=== PATIENT | male | born 1940 | race Caucasian/White ===

== ENCOUNTER 2017-07-02 09:56 | Emergency (ER) | payer MEDICARE, OTHER ==
[2017-07-02 12:52] VITALS: BP 122/82
--- NOTE | 2017-07-02 14:32 | ED ---
Back Pain - HPI Summary HPI Summary: Patient is an otherwise healthy 77-year-old male presenting to the ED with chief complaint of low back pain. He has had symptoms for several months, but this has been worsening in the past week. Back pain is to the bilateral lower back and radiates down both posterior legs. Denies bladder or bowel dysfunction. Denies any weakness or foot drop in either lower extremity. He states he had surgery on his neck at the [facility] on 1120 and had 10 pins placed. Second neck surgery done on 214 and had 14 pins placed. He is wearing a cervical collar on arrival. He states on April 23 he was attempting to get out of bed and developed severe low back pain. This has remained intermittent, but when it presents, he states the pain is 10 out of 10. Symptoms are relieved with ice and sitting" chair, aggravated by ambulation. He will followed up at the [facility] and was told he had compression fractures in his spine. He was taking oxycodone and Valium and ran out 2 weeks ago. He states he is visiting at this time, but plans to stay in the area for a while and does not have a local PCP or neurosurgeon. He has not tried ibuprofen as he was told not to take this following his surgery. However, his surgery was 2 months ago. - History of Current Complaint Chief Complaint: EDBackInjuryPain Stated Complaint: BACK PAIN Time Seen by Provider: 07/02/17 11:32 Hx Obtained From: Patient Onset/Duration: Sudden Onset Onset/Duration: Started Hours Ago Timing: Constant Back Pain Location: Is Discrete @ - Bilateral low back pain which radiates down into the legs without bladder or bowel dysfunction Severity Initially: Moderate Severity Currently: Moderate Pain Intensity: 4 Pain Scale Used: 0-10 Numeric Aggravating Symptom(s): Lifting, Bending, Walking Alleviating Symptom(s): Rest, Position Associated Signs And Symptoms: Positive: Negative. Negative: Swelling, Redness , Bruising, Weakness, Numbness, Tingling, Abdominal Pain, Bladder Incontinence, Bowel Incontinence, Weight Loss, Pain with Weight Bearing - Risk Factors AAA Risk Factors: Negative TAD Risk Factors: Negative Epidural Abscess Risk Factors: Negative PMH/Surg Hx/FS Hx/Imm Hx Previously Healthy: Yes Infectious Disease History: No Infectious Disease History: Denies: Traveled Outside the [place] in Last 30 Days - Social History Occupation: Unemployed Lives: With Family Alcohol Use: Occasionally Hx Substance Use: Yes Substance Use Type: Reports: Prescribed Hx Tobacco Use: Yes Smoking Status (MU): Former Smoker Review of Systems Constitutional: Negative Negative: Fever, Chills, Fatigue, Skin Diaphoresis Eyes: Negative Cardiovascular: Negative Respiratory: Negative Genitourinary: Negative Positive: no symptoms reported, see HPI Positive: Arthralgia Neurological: Negative All Other Systems Reviewed And Are Negative: Yes Physical Exam Triage Information Reviewed: Yes Vital Signs On Initial Exam: Initial Vitals Temp Pulse Resp BP Pulse Ox 97.8 F 95 18 125/91 100 07/02/17 10:03 07/02/17 10:03 07/02/17 10:03 07/02/17 10:03 07/02/17 10:03 Vital Signs Reviewed: Yes Appearance: Positive: Well-Appearing, Well-Nourished Skin: Positive: Warm, Skin Color Reflects Adequate Perfusion Head/Face: Positive: Normal Head/Face Inspection Eyes: Positive: EOMI, ADRIEN, Conjunctiva Clear Neck: Positive: Supple, No Lymphadenopathy Respiratory/Lung Sounds: Positive: Clear to Auscultation, Breath Sounds Present Cardiovascular: Positive: RRR, Pulses are Symmetrical in both Upper and Lower Extremities Musculoskeletal: Positive: Pain @ - Bilateral lower back Neurological: Positive: Sensory/Motor Intact, Alert, Oriented to Person Place, Time, Speech Normal Psychiatric: Positive: Normal, Affect/Mood Appropriate AVPU Assessment: Alert Diagnostics - Vital Signs Vital Signs Temp Pulse Resp BP Pulse Ox 07/02/17 12:49 97.6 F 90 18 122/82 97 07/02/17 10:03 97.8 F 95 18 125/91 100 - Laboratory Lab Statement: Any lab studies that have been ordered have been reviewed, and results considered in the medical decision making process. Back Pain Course/Dx - Course Course Of Treatment: Discussed at length treatment options available to the patient. I have advised he seek treatment with one of our local neurosurgeons. I have also advised he take gabapentin. He denies any bladder or bowel dysfunction. He states tramadol has helped him in the past, and he does not want opioids. I have also given him Flexeril for any spasms associated with the low back pain. He is given low back exercises. I have encouraged him to continue his TENS unit and also given him a referral to PT. He has a hard he had CT scan of the spine which show compression fractures which are stable, so I have opted out of scanning him again on this date. We'll treat with medications on this visit and encourage him to try PT and consults given to him. - Diagnoses Provider Diagnoses: Low back pain Discharge - Discharge Plan Condition: Stable Disposition: HOME Prescriptions: Diazepam TAB(*) [Valium TAB(*)] 10 mg PO Q8H PRN #15 tab MDD 3 PRN Reason: Spasms Gabapentin CAP(*) [Neurontin 300 CAP(*)] 300 mg PO BID #30 cap traMADol TAB* [Ultram*] 50 mg PO Q8H PRN #15 tab MDD 3 PRN Reason: Pain Patient Education Materials: Sciatica (ED), Lumbar Radiculopathy (ED), Lower Back Exercises (ED) [place] [facility] [place],PT [Medical Doctor] - No Primary Care Phys,NOPCP [Primary Care Provider] - Rossi Jacobsen MD [Medical Doctor] - Additional Instructions: Aleve twice daily Valium up to 3 times daily only as needed for any muscle spasms Gabapentin 300 mg twice daily Tramadol 53 times daily only as needed for pain not well controlled with Aleve Please call to make an appointment with neurosurgery Have also given you a referral for physical therapy Heat to the area as much as possible
== END 2017-07-02 12:49 | disposition home or self-care (01) ==
LOC: ED 09:56
DX: M54.5 Low back pain (principal); Z87.891 Personal history of nicotine dependence
CPT/HCPCS: 99282

== ENCOUNTER 2017-12-30 11:10 | Emergency (ER) | payer MEDICARE, OTHER ==
--- NOTE | 2017-12-30 13:11 | ED ---
Respiratory - HPI Summary HPI Summary: This patient is a 77 year old M presenting to [facility] with a chief complaint of cough and chest congestion for the last 3 weeks. The patient rates the pain 0/ 10 in severity. Symptoms alleviated by at home nebulizer. Patient denies hx of under lying lung issues. Pt seen at [facility] urgent care 4 days and has been on prednisone and doxycycline for 3 days without improvement. Pt was seen at [facility] several months ago and dx with early emphysema. There he was told by he had a chronic cough due to post nasal drip after a full lung work up. - History of Current Complaint Chief Complaint: EDUpperRespComplaint Stated Complaint: COUGH Time Seen by Provider: 12/30/17 12:58 Hx Obtained From: Patient Onset/Duration: Lasting Days, Still Present Timing: Constant Initial Severity: Mild Current Severity: Moderate Pain Intensity: 0 Character: Cough (Nonproductive) Sputum Amount: Small Associated Signs and Symptoms: Negative - fever - Allergy/Home Medications Allergies/Adverse Reactions: Allergies Allergy/AdvReac Type Severity Reaction Status Date / Time No Known Allergies Allergy Verified 12/30/17 11:28 Home Medications: Home Medications Doxycycline (NF) 20 mg PO DAILY 12/30/17 [History Confirmed 12/30/17] Tamsulosin CAP* [Flomax CAP*] 1 cap PO DAILY 12/30/17 [History Confirmed ] predniSONE [Prednisone 20 MG TAB] 1 tab PO DAILY 12/30/17 [History Confirmed 01/08] PMH/Surg Hx/FS Hx/Imm Hx Cardiovascular History: Denies: Hx Congenital Heart Disease Respiratory History: Reports: Other Respiratory Problems/Disorders - early emphysema Denies: Hx Bronchopulmonary Dysplasia, Hx Chronic Bronchitis, Hx Chronic Obstructive Pulmonary Disease (COPD), Hx Cystic Fibrosis, Hx Lung Cancer, Hx Pleural Effusion, Hx Pulmonary Edema History: Denies: Hx Acute Renal Failure Infectious Disease History: No Infectious Disease History: Denies: Traveled Outside the [place] in Last 30 Days - Family History Known Family History: Negative: Renal Disease, Respiratory Disease, Seizure Disorder, Blood Disorder - Social History Lives: With Family Alcohol Use: Occasionally Hx Substance Use: Yes Substance Use Type: Reports: Prescribed Hx Tobacco Use: Yes Smoking Status (MU): Former Smoker Review of Systems Negative: Fever Positive: Cough, Other - congestion All Other Systems Reviewed And Are Negative: Yes Physical Exam - Summary Physical Exam Summary: Appearance: The patient is well-nourished in no acute distress and in no acute pain. Skin: The skin is warm and dry and skin color reflects adequate perfusion. HEENT: The head is normocephalic and atraumatic. The pupils are equal and reactive. The conjunctivae are clear and without drainage. Nares are patent and without drainage. Mouth reveals moist mucous membranes and the throat is without erythema and exudate. The external ears are intact. The ear canals are patent and without drainage. The tympanic membranes are intact. Neck: The neck is supple with full range of motion and non-tender. There are no carotid bruits. There is no neck vein distension. Respiratory: Chest is non-tender. Lungs are clear to auscultation and breath sounds are symmetrical and equal. Wet paroxysmal cough Cardiovascular: Heart is regular rate and rhythm. There is no murmur or rub auscultated. There is no peripheral edema and pulses are symmetrical and equal. Abdomen: The abdomen is soft and non-tender. There are normal bowel sounds heard in all four quadrants and there is no organomegaly palpated. Musculoskeletal: There is no back tenderness noted. Extremities are non-tender with full range of motion. There is good capillary refill. There is no peripheral edema or calf tenderness elicited. Neurological: Patient is alert and oriented to person, place and time. The patient has symmetrical motor strength in all four extremities. Cranial nerves are grossly intact. Deep tendon reflexes are symmetrical and equal in all four extremities. Psychiatric: The patient has an appropriate affect and does not exhibit any anxiety or depression. Triage Information Reviewed: Yes Vital Signs On Initial Exam: Initial Vitals Temp Pulse Resp BP Pulse Ox 98.6 F 90 16 127/82 100 12/30/17 11:15 12/30/17 11:15 12/30/17 11:15 12/30/17 11:15 12/30/17 11:15 Vital Signs Reviewed: Yes Diagnostics - Vital Signs Vital Signs Temp Pulse Resp BP Pulse Ox 12/30/17 11:15 98.6 F 90 16 127/82 100 - Laboratory Result Diagrams: 12/30/17 13:42 12/30/17 13:42 Lab Statement: Any lab studies that have been ordered have been reviewed, and results considered in the medical decision making process. - Radiology CXR Radiology Interpretation Completed By: Radiologist - Hyperinflated lung mae with no evidence of active cardiopulmonary disease. ED physician has reviewed the report. - EKG 1339 Cardiac Rate: NL EKG Rhythm: Sinus Rhythm - at [address] Segment: Normal Ectopy: None EKG Interpretation: No STEMI Disposition - Course Course Of Treatment: Mr. Montes presented complaining of paroxysmal coughing spells. He has underlying history of COPD and was recently diagnosed with bronchitis at [facility]. He is on prednisone and antibiotics. He did have a paroxysmal wet cough here but otherwise clear lungs with only upper airway sounds. His workup was unremarkable and he got significant relief with guaifenesin AC. I will treat him symptomatically and have him continue his current treatment. - Diagnoses Provider Diagnoses: Bronchitis Discharge - Sign-Out/Discharge Documenting (check all that apply): Patient Departure - Discharge Plan Condition: Stable Disposition: HOME Prescriptions: guaiFENesin/CODIEN 100MG-10MG* [Robitussin AC 100Mg-10Mg*] 5 ml PO Q4H PRN #250 udc MDD 30 PRN Reason: Cough Patient Education Materials: Acute Bronchitis (ED) Referrals: [facility] [place] [facility] [Outside] - 2 Days Additional Instructions: RETURN TO THE EMERGENCY DEPARTMENT FOR CHANGING OR WORSENING SYMPTOMS - Billing Disposition and Condition Condition: STABLE Disposition: Home - Attestation Statements Document Initiated by Scribe: Yes Documenting Scribe: Jakob Geller Provider For Whom Viviane is Documenting (Include Credential): Cj Franklin MD Scribe Attestation: Jakob Cochran, scribed for Cj Franklin MD on 12/30/17 at 1829. Scribe Documentation Reviewed: Yes Provider Attestation: The documentation as recorded by the Jakob cerna accurately reflects the service I personally performed and the decisions made by me, Cj Franklin MD
[2017-12-30] MEDS ORDERED: guaiFENesin/CODIEN 100MG-10MG* 5 ML UDC PO ONE (13:22)
[2017-12-30 13:52] LABS: ABS Basophils 0 10^3/ul (0-0.2); ABS Eosinophils 0 10^3/ul (0-0.6); ABS Monocytes 0.5 10^3/ul (0-0.8); ABS Nucleated RBC 0 10^3/ul; Eosinophil % 0.1 % (0-6); Hematocrit 44 % (42-52); Hemoglobin 15.1 g/dl (14.0-18.0); Lymphocyte % 8.9 % (25-47); Mean Corpuscular HGB Conc 35 g/dl (31-36); Mean Corpuscular Hemoglobin 36 pg (27-31); Mean Corpuscular Volume 102 fL (80-94); Mean Platelet Volume 8.2 um3 (7.4-10.4); Nucleated Red Blood Cells % 0; Platelet Count 159 10^3/ul (150-450); Red Blood Count 4.25 10^6/ul (4.00-5.40); Red Cell Distribution Width 14 % (10.5-15); White Blood Count 11.6 10^3/ul (3.5-10.8)
--- NOTE | 2017-12-30 14:04 | RAD ---
Indication: Shortness of breath. 2 views of the chest including dual energy PA views demonstrate no mediastinal shift. Lung mae appear hyperinflated. No pleural fluid, pneumonia or pneumothorax is noted. IMPRESSION: Hyperinflated lung mae with no evidence of active cardiopulmonary disease.
[2017-12-30 14:09] LABS: EGFR Non-African American 84.4 (>60)
[2017-12-30 16:37] VITALS: BP 129/80
== END 2017-12-30 16:37 | disposition home or self-care (01) ==
LOC: ED 11:10
DX: J40 Bronchitis, not specified as acute or chronic (principal); Z87.891 Personal history of nicotine dependence
CPT/HCPCS: 36415; 71046; 80053; 83605; 83880; 84484; 85025; 86140; 93005; 99282; A9270-GY

== ENCOUNTER 2018-01-03 10:00 | Emergency (ER) | payer MEDICARE, OTHER ==
[2018-01-03] MEDS ORDERED: Albuterol/Ipratropium NEB.SOL* Albuterol 2.5 MG/Ipratropium 0.5 MG 3 ML INH ONE (10:30)
[2018-01-03] MEDS ORDERED: predniSONE TAB* 20 MG PO ONE (10:33)
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
[2018-01-03 10:54] LABS: ABS Basophils 0 10^3/ul (0-0.2); ABS Eosinophils 0.1 10^3/ul (0-0.6); ABS Lymphocytes 2.6 10^3/ul (1.0-4.8); ABS Monocytes 0.7 10^3/ul (0-0.8); ABS Neutrophils 5.1 10^3/ul (1.5-7.7); ABS Nucleated RBC 0 10^3/ul; Eosinophil % 1.4 % (0-6); Hematocrit 46 % (42-52); Hemoglobin 15.8 g/dl (14.0-18.0); Lymphocyte % 30.4 % (25-47); Mean Corpuscular HGB Conc 35 g/dl (31-36); Mean Corpuscular Hemoglobin 35 pg (27-31); Mean Corpuscular Volume 101 fL (80-94); Nucleated Red Blood Cells % 0.1; Platelet Count 158 10^3/ul (150-450); Red Blood Count 4.51 10^6/ul (4.00-5.40); Red Cell Distribution Width 14 % (10.5-15); White Blood Count 8.6 10^3/ul (3.5-10.8)
[2018-01-03] MEDS ORDERED: Benzonatate CAP* 100 MG PO ONE (10:54)
--- NOTE | 2018-01-03 11:11 | RAD ---
INDICATION: Shortness of breath. COMPARISON: Comparison is made with a prior chest x-ray study from March 31, 2018. TECHNIQUE: Dual-energy PA and lateral views of the chest were obtained. FINDINGS: The heart is within normal limits in size. Mediastinal and hilar contours appear within normal limits. The lungs are hyperinflated and clear. No pleural effusion is seen. IMPRESSION: HYPERINFLATION, NO EVIDENCE FOR ACUTE FINDING.
[2018-01-03 11:40] LABS: EGFR Non-African American 73.7 (>60)
[2018-01-03 12:00] VITALS: BP 130/74
== END 2018-01-03 11:59 | disposition home or self-care (01) ==
LOC: ED 10:00
DX: J40 Bronchitis, not specified as acute or chronic (principal); J31.0 Chronic rhinitis; R55 Syncope and collapse; R06.02 Shortness of breath; R05 Cough; Z87.891 Personal history of nicotine dependence
CPT/HCPCS: 36415; 71046; 80053; 83605; 83880; 84484; 85025; 86140; 87040; 93005; 99282; A9270-GY; J7512